=== PATIENT | male | born 1995 | race Two or more races ===

== ENCOUNTER → 2024-10-29 | Outpatient (CLI) | payer OTHER, SELFPAY ==
--- NOTE | 2024-10-29 07:00 | XR_ITS ---
Examination: MRI right ankle, without contrast Date and time of exam: October 29, 2024, 0655 hours INDICATIONS: Patient fell one year ago with injury to the ankle, followed by persistent ankle pain and palpable lump on the medial aspect of the ankle beginning 6 months ago Technique: Multiple axial sagittal and coronal images of the right ankle have been obtained with the Siemens high-resolution 1.5 [employer] MRI scanner. Images obtained include T2-weighted fat-suppressed sagittal sections, TR 3500, TE 46, T2 weighted coronal fat suppressed images, TR 3050, TE 84, T2-weighted transverse fat suppressed images, TR 3260, TE 63, proton density transverse images, TR 4720 TE 46, and T1 weighted coronal images, TR 560, TE 13. Findings: No occult fracture or bone contusion or marrow edema Prominent plantar fasciitis Mild thickening of the Achilles tendon Severe tendinitis involving the posterior tibial and flexor digitorum tendons on the medial side of the ankle which likely accounts for the palpable mass Moderate strain posterior talar fibular ligament Extensor tendons intact Negative for sinus Tarsi syndrome IMPRESSION: A prominent plantar fasciitis Moderate strain posterior talofibular ligament Prominent tendinitis involving the posterior tibial and flexor digitorum tendons on the medial side of the ankle
== END | disposition home or self-care (01) ==
LOC: SMRI 06:46
PROVIDERS: PCP Physician Assistant; Referring Provider Physician Assistant; Visit Provider Physician Assistant
DX: M72.2 Plantar fascial fibromatosis (principal); M76.821 Posterior tibial tendinitis, right leg; M24.271 Disorder of ligament, right ankle
CPT/HCPCS: 73721